=== PATIENT | male | born 1985 | race Two or more races ===

== ENCOUNTER 2019-10-18 12:37 | Observation (INO) | payer OTHER ==
[~2019-10-18] VITALS: Ht 165.1 cm; Wt 84.4 kg
[2019-10-18] MEDS ORDERED: HYDROmorphone 1 MG/ML, 1ML INJ ONE ×2 (13:20→15:45)
[2019-10-18] MEDS ORDERED: ONDANSETRON 2MG/ML, 2ML ONE ×2 (13:20→16:45)
[2019-10-18] MEDS ORDERED: ONDANSETRON 2MG/ML, 2ML IVPush ONE (13:30)
[2019-10-18] MEDS ORDERED: SODIUM CHLORIDE FLUSH 10ML SYR IVF ONE (13:30)
[2019-10-18] MEDS ORDERED: SODIUM CHLORIDE 0.9% 1,000ML IVBOLUS ONE (13:30)
[2019-10-18] MEDS: HYDROmorphone 2 MG/ML, 1ML IVPush PRN ×2 (13:31→15:09)
--- NOTE | 2019-10-18 13:35 | NUR ---
IV PLACED, UNABLE TO DRAW LABS WITH START. NS BOLUS INFUSING, MEDS GIVEN PER ERP ORDER FOR 10/04 ABD PAIN AND N/V. URINE COLLECTED/SENT TO LAB. AT BS. CALL LIGHT WITHIN REACH.
[2019-10-18 13:43] LABS: BASOPHILS % (AUTO) 0 % (0-1); EOSINOPHILS % (AUTO) 0 % (1-7); LYMPHOCYTES % (AUTO) 6 % (22-44); MD NO; MEAN CORPUSCULAR HEMOGLOBIN 31.2 pg (27.5-34.5); MEAN CORPUSCULAR HGB CONC 33.5 g/dL (33.2-36.2); MEAN CORPUSCULAR VOLUME 93.3 fL (81-97); MEAN PLATELET VOLUME 8.5 fL (7.4-10.4); MONOCYTES # (AUTO) 0.42 x10^3/uL (0.2-0.8); MONOCYTES % (AUTO) 3 % (2-9); NEUTROPHILS % (AUTO) 92 % (42-75); PLATELET COUNT 210 x10^3/uL (130-400); RED BLOOD COUNT 5.24 x10^6/uL (4.38-5.82)
[2019-10-18 13:49] LABS: ALANINE AMINOTRANSFERASE 50 U/L (12-78); ALBUMIN 4.4 g/dL (3.4-5.0); ANION GAP 10 mmol/L (5-15); CHLORIDE 103 mmol/L (98-107); CREATININE 0.89 mg/dL (0.7-1.3)
[2019-10-18 13:51] LABS: ALKALINE PHOSPHATASE 93 U/L (45-117); BILIRUBIN,TOTAL 0.6 mg/dL (0.2-1.0); TOTAL PROTEIN 8.4 g/dL (6.4-8.2)
[2019-10-18 13:57] LABS: MICROSCOPIC AUTO
[2019-10-18] MEDS ORDERED: OMNIPAQUE 350 MG/ML, 100ML BOTTLE ONE (14:28)
--- NOTE | 2019-10-18 14:32 | NUR ---
ADD ON ORDER FOR CT. PT STATES PAIN A LITTLE BETTER, 09/03, NO N/V. CALL LIGHT WITHIN REACH.
[2019-10-18 14:33] VITALS: BP 132/67
[2019-10-18] MEDS ORDERED: CEFOTETAN PMX 1GM/50ML 50 ML ONE (14:54)
[2019-10-18] MEDS ORDERED: CEFOTETAN PMX 1GM/50ML 50 ML IV ONE (15:00)
--- NOTE | 2019-10-18 15:08 | NUR ---
GOWN IN PLACE, ALL OTHER CLOTHING REMOVED AND TO BELONGING BAG. ANTIBIOTIC INFUSING PER ORDER. PT REMEDICATED WITH 2ND DOSE OF DILAUDID FOR 7/10 PAIN.
--- NOTE | 2019-10-18 15:41 | NUR ---
GAVE REPORT TO [employer] .
--- NOTE | 2019-10-18 15:49 | NUR ---
OBTAINED ORDER FROM ERP FOR MORE PAIN MEDICATION. PT REMEDICATED FOR 10/10 PAIN.
[2019-10-18] MEDS ORDERED: HYDROmorphone 1 MG/ML, 1ML INJ IV ONE (16:00)
[2019-10-18] MEDS ORDERED: MIDAZOLAM 1 MG/ML, 2ML ONE (16:15)
[2019-10-18] MEDS ORDERED: FENTANYL PF 250 MCG/5ML ONE (16:15)
[2019-10-18] MEDS ORDERED: PROPOFOL 50 ML ONE (16:15)
--- NOTE | 2019-10-18 16:23 | NUR ---
REPORT TO [facility]. WHO FORM STARTED. PT EMPTIED BLADDER PER OR REQUEST. PT READY FOR TRANSPORT.
[2019-10-18] MEDS ORDERED: BUPIVACAINE/PF-EPI 0.5% 1:200K ONE (16:29)
[2019-10-18] MEDS ORDERED: SUCCINYLCHOLINE 20 MG/ML, 10ML ONE (16:45)
[2019-10-18] MEDS ORDERED: KETOROLAC 30 MG/1 ML ONE (16:45)
[2019-10-18] MEDS ORDERED: DEXAMETHASONE 4 MG/ML, 1ML ONE (16:45)
[2019-10-18] MEDS ORDERED: ROCURONIUM 10 MG/ML,10ML ONE (16:45)
[2019-10-18] MEDS ORDERED: EPHEDRINE 50 MG/ML, 1ML IVPush PRN (17:00)
[2019-10-18] MEDS ORDERED: EPHEDRINE 50 MG/ML, 1ML IM PRN (17:00)
[2019-10-18] MEDS ORDERED: LABETALOL 5MG/ML, 20ML IV PRN (17:00)
[2019-10-18] MEDS ORDERED: DIPHENHYDRAMINE 50 MG/ML, 1ML IVPush PRN (17:00)
[2019-10-18] MEDS ORDERED: OXYcodone 5 MG/5 ML ORAL.SOL UDC PO PRN (17:00)
[2019-10-18] MEDS ORDERED: MEPERIDINE/PF 25MG/0.5ML IVPush PRN (17:00)
[2019-10-18] MEDS ORDERED: HYDROmorphone 1 MG/ML, 1ML INJ IVPush PRN (17:00)
[2019-10-18] MEDS ORDERED: DIAZEPAM 5 MG/ML, 2ML IVPush PRN (17:00)
[2019-10-18] MEDS ORDERED: FENTANYL PF 100 MCG/2ML IV PRN (17:00)
[2019-10-18] MEDS ORDERED: PROMETHAZINE 25 MG/ML, 1ML IVPush PRN (17:00)
[2019-10-18] MEDS ORDERED: ONDANSETRON 2MG/ML, 2ML IVPush PRN ×2 (17:00→19:00)
[2019-10-18] MEDS ORDERED: BUPIVACAINE/PF-EPI 0.5% 1:200K IM ONE (17:09)
[2019-10-18] MEDS ORDERED: OXYcodone 5 MG/5 ML ORAL.SOL UDC ONE (17:56)
[2019-10-18] MEDS ORDERED: OXYcodone/APAP 5/325MG TABLET PO PRN (19:00)
[2019-10-18] MEDS ORDERED: OXYC-302 PO (19:47)
[2019-10-18] MEDS ORDERED: POLY17PO5 PO (19:49)
== END 2019-10-18 20:49 | disposition home or self-care (01) ==
LOC: ED 13:42 → EDIP 15:07 → 4NE 18:15
PROVIDERS: ADMIT Colon & Rectal Surgery; ATTEND Colon & Rectal Surgery
DX: K35.80 Unspecified acute appendicitis (principal); Z20.828 Contact with and (suspected) exposure to other viral communicable diseases; R73.9 Hyperglycemia, unspecified
CPT/HCPCS: 36415; 44970; 74177; 80053; 81001; 83690; 85025; 87635; 88304; 96361; 96365; 96375; 96376; 99285; G0378; J0330; J1100; J1170; J1885; J2250; J2405; J2704; J3010; J3490; J7030; Q9967